=== PATIENT | male | born 1930 | race Caucasian/White ===

== ENCOUNTER → 2016-07-21 | Outpatient (CLI) | payer OTHER | END | disposition home or self-care (01) | LOC: CFH 10:52 | PROVIDERS: ATTEND Internal Medicine Cardiovascular Disease | DX: I25.10 Atherosclerotic heart disease of native coronary artery without angina pectoris (principal); I10 Essential (primary) hypertension; I08.3 Combined rheumatic disorders of mitral, aortic and tricuspid valves; I37.1 Nonrheumatic pulmonary valve insufficiency | CPT/HCPCS: 93306 ==

== ENCOUNTER 2017-04-15 07:49 | Emergency (ER) | payer OTHER ==
[~2017-04-15] VITALS: Ht 175.3 cm; Wt 59.4 kg
[2017-04-15 07:58] VITALS: BP 119/70
[2017-04-15] MEDS ORDERED: OXYMETAZOLINE NASAL SPRAY 0.05%, 15ML NAS ONE (08:30)
[2017-04-15] MEDS ORDERED: COCAINE TOPICAL SOLN 4%, 4ML TP ONE (08:30)
[2017-04-15 08:45] LABS: BASOPHILS # (AUTO) 0.02 x10^3/uL (0-0.1); BASOPHILS % (AUTO) 0 % (0-1); EOSINOPHILS # (AUTO) 0.04 x10^3/uL (0-0.4); EOSINOPHILS % (AUTO) 1 % (1-7); LYMPHOCYTES # (AUTO) 0.78 x10^3/uL (1-3.4); LYMPHOCYTES % (AUTO) 20 % (22-44); MD NO; MEAN CORPUSCULAR HGB CONC 33.8 g/dL (33.2-36.2); MEAN CORPUSCULAR VOLUME 103.8 fL (81-97); MEAN PLATELET VOLUME 9.6 fL (7.4-10.4); MONOCYTES # (AUTO) 0.34 x10^3/uL (0.2-0.8); MONOCYTES % (AUTO) 9 % (2-9); NEUTROPHILS # (AUTO) 2.75 x10^3/uL (1.8-6.8); NEUTROPHILS % (AUTO) 70 % (42-75); PLATELET COUNT 119 x10^3/uL (130-400); RED BLOOD COUNT 3.71 x10^6/uL (4.38-5.82); RED CELL DISTRIBUTION WIDTH 13.9 % (9.4-14.8)
[2017-04-15] MEDS ORDERED: COCAINE TOPICAL SOLN 4%, 4ML ONE (08:45)
[2017-04-15] MEDS ORDERED: OXYMETAZOLINE NASAL SPRAY 0.05%, 15ML ONE (08:45)
[2017-04-15] MEDS ORDERED: SILVER NITRATE STICK TP ONE (08:45)
[2017-04-15] MEDS ORDERED: BACITRACIN ZINC OINT 500U/GM, 0.9 GM ONE (09:55)
== END 2017-04-15 10:04 | disposition home or self-care (01) ==
LOC: ED 09:15
DX: R04.0 Epistaxis (principal)
CPT/HCPCS: 30901; 36415; 85025

== ENCOUNTER 2018-01-10 10:04 | Observation (INO) | payer OTHER ==
[~2018-01-10] VITALS: Ht 175.3 cm; Wt 58.1 kg
[2018-01-10] MEDS ORDERED: ESCI10TA10 PO (10:30)
[2018-01-10] MEDS ORDERED: ALPR0.5T PO (10:30)
[2018-01-10] MEDS ORDERED: POTA99TA24 PO (10:30)
[2018-01-10] MEDS ORDERED: SIMV5TAB14 PO (10:30)
[2018-01-10] MEDS ORDERED: LEVO25TA4 PO (10:30)
[2018-01-10] MEDS ORDERED: ASPI500P3 PO (10:30)
[2018-01-10] MEDS ORDERED: LIDOCAINE-MPF 1%, 2ML ONE ×2 (10:56→10:58)
--- NOTE | 2018-01-10 11:58 | NUR ---
Break RN: report received from Dorota RIVERA, patient safe in [facility] on room air.
[2018-01-10 12:35] LABS: BASOPHILS # (AUTO) 0.01 x10^3/uL (0-0.1); BASOPHILS % (AUTO) 0 % (0-1); EOSINOPHILS # (AUTO) 0.01 x10^3/uL (0-0.4); EOSINOPHILS % (AUTO) 0 % (1-7); LYMPHOCYTES # (AUTO) 0.68 x10^3/uL (1-3.4); LYMPHOCYTES % (AUTO) 11 % (22-44); MD NO; MEAN CORPUSCULAR HGB CONC 34.8 g/dL (33.2-36.2); MEAN CORPUSCULAR VOLUME 103.6 fL (81-97); MEAN PLATELET VOLUME 8.8 fL (7.4-10.4); MONOCYTES # (AUTO) 0.87 x10^3/uL (0.2-0.8); MONOCYTES % (AUTO) 14 % (2-9); NEUTROPHILS # (AUTO) 4.77 x10^3/uL (1.8-6.8); NEUTROPHILS % (AUTO) 75 % (42-75); PLATELET COUNT 161 x10^3/uL (130-400); RED BLOOD COUNT 3.58 x10^6/uL (4.38-5.82); RED CELL DISTRIBUTION WIDTH 13.3 % (9.4-14.8)
[2018-01-10 12:41] LABS: INTERNATIONAL NORMALIZED RATIO 1.04 (0.93-1.1); PROTHROMBIN TIME 10.7 Seconds (9.6-11.5)
[2018-01-10 12:51] LABS: ALBUMIN 4.4 g/dL (3.4-5.0); ANION GAP 7 mmol/L (5-15); CALCIUM 9.3 mg/dL (8.5-10.1); CHLORIDE 104 mmol/L (98-107); CREATININE 1.15 mg/dL (0.7-1.3)
[2018-01-10] MEDS ORDERED: morphine SULFATE 10 MG/ML, 1ML IVPush PRN (13:00)
[2018-01-10] MEDS ORDERED: ENALAPRILAT 1.25 MG/ML, 2ML IVPush PRN (13:00)
[2018-01-10] MEDS ORDERED: ONDANSETRON 2MG/ML, 2ML IVPush PRN (13:00)
[2018-01-10 13:30] VITALS: BP 127/68
[2018-01-10] MEDS: ENOXAPARIN 40 MG/0.4 ML SQ SCH (16:55)
[2018-01-10] MEDS: SODIUM CHLORIDE 0.9% 1,000 ML IV SCH (16:56)
[2018-01-10 19:11] VITALS: BP 125/69
[2018-01-11 01:53] VITALS: BP 117/61
[2018-01-11] MEDS: SODIUM CHLORIDE 0.9% 1,000 ML IV SCH ×2 (03:38→16:55)
[2018-01-11 05:44] LABS: CHLORIDE 106 mmol/L (98-107)
[2018-01-11 05:50] LABS: ALANINE AMINOTRANSFERASE 21 U/L (12-78); ALBUMIN 3.6 g/dL (3.4-5.0); ALKALINE PHOSPHATASE 128 U/L (45-117); ANION GAP 7 mmol/L (5-15); BASOPHILS # (AUTO) 0.02 x10^3/uL (0-0.1); BASOPHILS % (AUTO) 0 % (0-1); BILIRUBIN,TOTAL 0.9 mg/dL (0.2-1.0); CALCIUM 8.4 mg/dL (8.5-10.1); CREATININE 0.92 mg/dL (0.7-1.3); EOSINOPHILS # (AUTO) 0.09 x10^3/uL (0-0.4); EOSINOPHILS % (AUTO) 1 % (1-7); LYMPHOCYTES # (AUTO) 0.97 x10^3/uL (1-3.4); LYMPHOCYTES % (AUTO) 16 % (22-44); MD NO; MEAN CORPUSCULAR HEMOGLOBIN 35.4 pg (27.5-34.5); MEAN CORPUSCULAR HGB CONC 34.3 g/dL (33.2-36.2); MEAN CORPUSCULAR VOLUME 103.4 fL (81-97); MEAN PLATELET VOLUME 8.8 fL (7.4-10.4); MONOCYTES # (AUTO) 1.11 x10^3/uL (0.2-0.8); MONOCYTES % (AUTO) 18 % (2-9); NEUTROPHILS % (AUTO) 65 % (42-75); PLATELET COUNT 136 x10^3/uL (130-400); RED BLOOD COUNT 3.15 x10^6/uL (4.38-5.82); TOTAL PROTEIN 6.9 g/dL (6.4-8.2)
[2018-01-11] MEDS: CITALOPRAM 20 MG TABLET PO SCH (07:27)
[2018-01-11] MEDS: LEVOTHYROXINE 50 MCG TABLET PO SCH (07:28)
[2018-01-11 07:33] VITALS: BP 125/72
[2018-01-11 12:34] VITALS: BP 108/65
[2018-01-11] MEDS: ENOXAPARIN 40 MG/0.4 ML SQ SCH (16:55)
[2018-01-11 18:48] VITALS: BP 118/69
[2018-01-12 02:17] VITALS: BP 110/57
[2018-01-12] MEDS: LEVOTHYROXINE 50 MCG TABLET PO SCH (04:40)
[2018-01-12] MEDS: CITALOPRAM 20 MG TABLET PO SCH (07:51)
[2018-01-12 07:56] VITALS: BP 108/61
[2018-01-12] MEDS ORDERED: ERGOCALCIFEROL 50,000 UNIT CAPSULE PO SCH (09:00)
[2018-01-12] MEDS ORDERED: MAGNESIUM CITRATE 300ML ORAL SOL PO ONE (10:30)
[2018-01-12 11:28] LABS: MICROSCOPIC AUTO
[2018-01-12] MEDS: DOCUSATE 100 MG CAPSULE PO SCH ×2 (11:53→21:48)
[2018-01-12] MEDS: ENOXAPARIN 40 MG/0.4 ML SQ SCH (11:53)
[2018-01-12] MEDS: MAGNESIUM HYDROXIDE 8%, 30ML UDC PO SCH (11:53)
[2018-01-12 12:28] VITALS: BP 99/59
[2018-01-12 18:42] VITALS: BP 123/65
[2018-01-13 01:44] VITALS: BP 120/67
[2018-01-13] MEDS: LEVOTHYROXINE 50 MCG TABLET PO SCH (05:14)
[2018-01-13 07:33] VITALS: BP 132/70
[2018-01-13] MEDS: MAGNESIUM HYDROXIDE 8%, 30ML UDC PO SCH (10:05)
[2018-01-13] MEDS: DOCUSATE 100 MG CAPSULE PO SCH ×2 (10:07→21:32)
[2018-01-13] MEDS: CITALOPRAM 20 MG TABLET PO SCH (10:08)
[2018-01-13 13:23] VITALS: BP 117/72
[2018-01-13] MEDS: ENOXAPARIN 40 MG/0.4 ML SQ SCH (13:51)
[2018-01-13] MEDS: ACETAMINOPHEN 325 MG TABLET PO PRN (15:23)
[2018-01-13] MEDS: SODIUM CHLORIDE 0.9% 1,000 ML IV SCH (18:30)
[2018-01-13] MEDS ORDERED: EYE WASH SOLUTION 120ML EACHEYE PRN (18:30)
[2018-01-13 19:08] VITALS: BP 103/59
[2018-01-14 01:56] VITALS: BP 130/71
[2018-01-14] MEDS: ACETAMINOPHEN 325 MG TABLET PO PRN ×3 (05:35→21:13)
[2018-01-14] MEDS: LEVOTHYROXINE 50 MCG TABLET PO SCH (05:36)
[2018-01-14] MEDS: SODIUM CHLORIDE 0.9% 1,000 ML IV SCH ×2 (05:36→18:23)
[2018-01-14 07:49] VITALS: BP 130/70
[2018-01-14] MEDS: MAGNESIUM HYDROXIDE 8%, 30ML UDC PO SCH (09:31)
[2018-01-14] MEDS: CITALOPRAM 20 MG TABLET PO SCH (09:32)
[2018-01-14] MEDS: DOCUSATE 100 MG CAPSULE PO SCH ×2 (09:32→21:13)
[2018-01-14 13:30] VITALS: BP 132/69
[2018-01-14] MEDS: ENOXAPARIN 40 MG/0.4 ML SQ SCH (18:22)
[2018-01-14 19:37] VITALS: BP 129/73
[2018-01-15 01:00] VITALS: BP 131/73
[2018-01-15] MEDS: ACETAMINOPHEN 325 MG TABLET PO PRN (04:18)
[2018-01-15] MEDS: LEVOTHYROXINE 50 MCG TABLET PO SCH (05:51)
[2018-01-15 07:24] VITALS: BP 116/52
[2018-01-15] MEDS: MAGNESIUM HYDROXIDE 8%, 30ML UDC PO SCH (08:39)
[2018-01-15] MEDS: CITALOPRAM 20 MG TABLET PO SCH (08:39)
[2018-01-15] MEDS: DOCUSATE 100 MG CAPSULE PO SCH (08:39)
[2018-01-15] MEDS ORDERED: ERGO500017 PO (11:36)
[2018-01-15] MEDS ORDERED: ACET325T14 PO (11:36)
[2018-01-15] MEDS ORDERED: PRED20TA PO (11:36)
[2018-01-15 12:32] VITALS: BP 123/74
== END 2018-01-15 15:24 | disposition home health service (06) ==
LOC: ED 12:33 → INTOOBSV 12:34 → 3NE 12:34
PROVIDERS: ADMIT Internal Medicine; ATTEND Internal Medicine
DX: S82.001A Unspecified fracture of right patella, initial encounter for closed fracture (principal); I10 Essential (primary) hypertension; D53.9 Nutritional anemia, unspecified; R73.9 Hyperglycemia, unspecified; E03.9 Hypothyroidism, unspecified; E55.9 Vitamin D deficiency, unspecified; K59.00 Constipation, unspecified; M19.042 Primary osteoarthritis, left hand; Z79.899 Other long term (current) drug therapy; W01.0XXA Fall on same level from slipping, tripping and stumbling without subsequent striking against object, initial encounter; Y92.89 Other specified places as the place of occurrence of the external cause; Y93.89 Activity, other specified
CPT/HCPCS: 36415; 70450; 70486; 71045; 73080; 73564; 80048; 80053; 81001; 82040; 82306; 82607; 84443; 85025; 85610; 85730; 93005; 96372; 97110; 97116; 97162; 97166; 97530; 97535; 99285; G0378; J1650; J7030; J7512